=== PATIENT | female | born 1960 | race Caucasian/White ===

== ENCOUNTER 2018-05-28 13:09 | Day surgery (SDC) | payer OTHER ==
[2018-05-28] MEDS ORDERED: LIDOCAINE 4% SOLUTION 50 ML BTL (14:06)
[2018-05-28] MEDS ORDERED: FENTAnyl 50 MCG/ML VIAL (14:47)
[2018-05-28] MEDS ORDERED: MIDAZOLAM 1 MG/ML 2 ML INJ ×2 (14:47)
== END 2018-05-28 16:39 | disposition home or self-care (01) ==
LOC: GIL 13:09
DX: Z12.11 Encounter for screening for malignant neoplasm of colon (principal); K29.50 Unspecified chronic gastritis without bleeding; K44.9 Diaphragmatic hernia without obstruction or gangrene; K29.30 Chronic superficial gastritis without bleeding; I10 Essential (primary) hypertension; E11.9 Type 2 diabetes mellitus without complications; E78.5 Hyperlipidemia, unspecified; J45.909 Unspecified asthma, uncomplicated
CPT/HCPCS: 43239; 82962; 88305; 88312